=== PATIENT | female | born 1965 | race Two or more races ===

== ENCOUNTER 2020-03-11 17:11 | Emergency (ER) | payer SELFPAY ==
[~2020-03-11] VITALS: Ht 142.2 cm; Wt 63.6 kg
[2020-03-11 17:18] VITALS: BP 126/74
== END 2020-03-11 18:56 | disposition home or self-care (01) ==
LOC: EMS 17:11
DX: Z03.818 Encounter for observation for suspected exposure to other biological agents ruled out (principal); M79.10 Myalgia, unspecified site; R63.0 Anorexia; Z90.710 Acquired absence of both cervix and uterus
CPT/HCPCS: 99283; U0003

== ENCOUNTER 2024-08-08 07:00 | Emergency (ER) | payer OTHER, SELFPAY ==
[~2024-08-08] VITALS: Ht 157.5 cm; Wt 64.5 kg
[2024-08-08 07:17] VITALS: TEMP 98.2
[2024-08-08] MEDS: ACETAMINOPHEN 500 MG TABLET PO ONE (07:50)
[2024-08-08] MEDS: KETOROLAC TROMETHAMINE 30 MG/ML VIAL IM ONE (07:50)
[2024-08-08] MEDS: METHOCARBAMOL 500 MG TABLET PO ONE (07:50)
[2024-08-08 09:00] VITALS: BP 128/78; PULSE 75; RESP 16; O2SAT 98
[2024-08-08] MEDS ORDERED: METH-812 PO (09:11)
== END 2024-08-08 09:30 | disposition home or self-care (01) ==
LOC: EMS 07:00
DX: M54.2 Cervicalgia (principal); Z90.710 Acquired absence of both cervix and uterus; V89.2XXA Person injured in unspecified motor-vehicle accident, traffic, initial encounter; Y93.89 Activity, other specified; Y92.410 Unspecified street and highway as the place of occurrence of the external cause; Y99.8 Other external cause status
CPT/HCPCS: 99285; 72125; 96372; J1885